=== PATIENT | female | born 1995 | race Caucasian/White ===

== ENCOUNTER 2021-11-08 09:32 | Emergency (ER) | payer OTHER ==
[~2021-11-08] VITALS: Ht 172.7 cm; Wt 122.5 kg
[2021-11-08 10:40] VITALS: BP 129/77
== END 2021-11-08 10:40 | disposition home or self-care (01) ==
LOC: ER 09:32
DX: O98.512 Other viral diseases complicating pregnancy, second trimester (principal); U07.1 COVID-19; Z3A.17 17 weeks gestation of pregnancy